=== PATIENT | male | born 1985 | race African-American/Black ===

== ENCOUNTER 2016-08-19 00:50 | Emergency (ER) | payer MEDICAID ==
[~2016-08-19] VITALS: Ht 170.2 cm; Wt 96.1 kg
[~2016-08-19 00:50] MED LIST: DILA8TAB4 PO; PROC1TAB8 PO
[2016-08-19 00:58] VITALS: BP 114/72; PULSE 77; RESP 12; TEMP 98.3; O2SAT 95
[2016-08-19] MEDS ORDERED: DILA8TAB4 PO (01:15)
--- NOTE | 2016-08-19 01:33 | PD ---
HPI Chief Complaint: Edema Time Seen by Provider: 01:09 Travel History International Travel<30 days: No Contact w/Intl Traveler<30days: No Traveled to known affect area: No History of Present Illness HPI 31-year-old male presents to the emergency department by private transportation for complaint of bilateral lower leg and pedal edema. Patient reportedly has noticed this for the first time since Friday. Patient states symptoms began around 5 PM on Friday noticing some swelling and persisted causing him pedal pain. No recent long distance travel protracted bedrest her surgical procedure. No chest pain shortness of breath or pleuritic chest pain. No fever or chills. No history of hypertension or dyslipidemia. Patient has chronic pain syndrome for which she has reportedly prescribed Dilaudid 8 mg 3 times a day. Patient has taken no anti-inflammatory medication such as ibuprofen/Motrin/Advil or Aleve/depression/Naprosyn. Patient's had no change in his urine output. Patient does complain of low back pain. Patient denies other concerns or complaints. Patient is not elevated his lower extremities. PFSH Past Medical History Narrative Medical Chronic low back pain; inguinal herniorrhaphy; positive tobacco use alcohol use and cannabis use; nursing notes reviewed Diminished Hearing: No Musculoskeletal: Yes (CHRONIC BACK PAIN) Immunizations Current: Yes ?: Not Past Surgical History Other Surgery: Yes (INGUINAL HERNIA REPAIR) Social History Alcohol Use: Yes (SOCIALLY) Tobacco Use: Yes (OCCASIONAL) Substance Use: Yes (THC) Allergies-Medications (Allergen,Severity, Reaction): Coded Allergies: No Known Allergies (Verified , 08/19/16) Reported Meds & Prescriptions Reported Meds & Active Scripts Active Reported Dilaudid (Hydromorphone HCl) 8 Mg Tab 8 Mg PO Q6H PRN Review of Systems Except as stated in HPI: all other systems reviewed are Neg General / Constitutional: No: Fever, Chills Eyes: No: Visual changes HENT: No: Congestion Cardiovascular: Positive: Edema, No: Chest Pain or Discomfort, Diaphoresis, Dyspnea on exertion Respiratory: No: Cough, Shortness of Breath, Wheezing Gastrointestinal: No: Nausea, Vomiting, Diarrhea, Abdominal Pain Genitourinary: No: Dysuria, Flank Pain Musculoskeletal: Positive: Edema, Pain, No: Myalgias, Arthralgias, Limited ROM Skin: No Rash Neurologic: No: Weakness, Dizziness, Syncope Psychiatric: No: Anxiety Endocrine: No: Heat Intolerance, Cold Intolerance Hematologic/Lymphatic: No: Easy Bruising Physical Exam Narrative GENERAL: Well-developed well-nourished male in no acute distress no respiratory distress SKIN: Warm and dry. HEAD: Normocephalic. EYES: No scleral icterus. No injection or drainage. NECK: Supple, trachea midline. No JVD or lymphadenopathy. CARDIOVASCULAR: Regular rate and rhythm without murmurs, gallops, or rubs. RESPIRATORY: Breath sounds equal bilaterally. No accessory muscle use. GASTROINTESTINAL: Abdomen soft, non-tender, nondistended. MUSCULOSKELETAL: No cyanosis, 1+ bilateral lower leg ankle and pedal edema; bilateral dorsalis pedis pulses and posterior tibialis pulses 2 and equal, bilateral capillary refill less than 2 seconds; bilateral lower leg tenderness to palpation negative Homans sign negative posterior calf cording to palpation. BACK: Nontender without obvious deformity. No CVA tenderness. Data Data Last Documented VS Vital Signs Date Time Temp Pulse Resp B/P Pulse Ox O2 Delivery O2 Flow Rate FiO2 08/19/16 04:23 78 14 112/71 99 Room Air 08/19/16 00:58 98.3 Orders Complete Blood Count With Diff (08/19/16 01:09) Basic Metabolic Panel (Bmp) (08/19/16 01:09) B-Type Natriuretic Peptide (08/19/16 01:09) Magnesium (Mg) (08/19/16 01:09) Troponin I (08/19/16 01:09) Urinalysis - C+S If Indicated (08/19/16 01:09) Iv Access Insert/Monitor (08/19/16 01:09) Electrocardiogram (08/19/16 01:09) Ecg Monitoring (08/19/16 01:09) Oximetry (08/19/16 01:09) Chest, Single Ap (08/19/16 01:09) D-Dimer (08/19/16 02:30) Sodium Chlorid 0.9% 500 Ml Inj (Ns 500 M (08/19/16 03:15) Us Leg Venous Doppler Bilat (08/19/16 ) Ct Pulmonary Angiogram (08/19/16 ) Iohexol 350 Inj (Omnipaque 350 Inj) (08/19/16 05:29) Labs Laboratory Tests Test 08/19/16 08/19/16 08/19/16 01:30 02:20 02:51 White Blood Count 6.2 TH/MM3 Red Blood Count 4.37 MIL/MM3 Hemoglobin 13.3 GM/DL Hematocrit 38.3 % Mean Corpuscular Volume 87.6 FL Mean Corpuscular Hemoglobin 30.3 PG Mean Corpuscular Hemoglobin 34.6 % Concent Red Cell Distribution Width 11.7 % Platelet Count 157 TH/MM3 Mean Platelet Volume 9.4 FL Neutrophils (%) (Auto) 58.0 % Lymphocytes (%) (Auto) 30.8 % Monocytes (%) (Auto) 8.0 % Eosinophils (%) (Auto) 1.5 % Basophils (%) (Auto) 1.7 % Neutrophils # (Auto) 3.6 TH/MM3 Lymphocytes # (Auto) 1.9 TH/MM3 Monocytes # (Auto) 0.5 TH/MM3 Eosinophils # (Auto) 0.1 TH/MM3 Basophils # (Auto) 0.1 TH/MM3 CBC Comment DIFF FINAL Differential Comment Sodium Level 143 MEQ/L Potassium Level 3.6 MEQ/L Chloride Level 106 MEQ/L Carbon Dioxide Level 30.2 MEQ/L Anion Gap 7 MEQ/L Blood Urea Nitrogen 11 MG/DL Creatinine 1.10 MG/DL Estimat Glomerular Filtration 93 ML/MIN Rate Random Glucose 126 MG/DL Calcium Level 8.7 MG/DL Magnesium Level 2.3 MG/DL Troponin I LESS THAN 0.02 NG/ML B-Type Natriuretic Peptide LESS THAN 2 PG/ML Urine Color YELLOW Urine Turbidity CLEAR Urine pH 6.0 Urine Specific [place] 1.022 Urine Protein NEG mg/dL Urine Glucose (UA) NEG mg/dL Urine Ketones NEG mg/dL Urine Occult Blood NEG Urine Nitrite NEG Urine Bilirubin NEG Urine Leukocyte Esterase NEG Urine RBC 0-3 /hpf Urine WBC 0-2 /hpf Urine Squamous Epithelial 0-5 /hpf Cells Urine Mucus OCC /lpf Microscopic Urinalysis Comment CULT NOT INDICATED D-Dimer Quantitative (PE/DVT) 1.40 MG/L FEU [facility] Medical Decision Making Medical Screen Exam Complete: Yes Emergency Medical Condition: Yes Medical Record Reviewed: Yes Interpretation(s) EKG: Normal sinus rhythm rate 72 first degree AV block no acute ST elevation or injury pattern change noted Last Impressions Chest X-Ray 08/19/16 0109 Signed Impressions: Service Date/Time: Friday, August 19, 2016 01:32 - CONCLUSION: Mild bibasilar atelectasis. Martin Landa MD Lower Extremity Ultrasound 08/19/16 0000 Signed Impressions: Service Date/Time: Friday, August 19, 2016 04:34 - CONCLUSION: No DVT of either lower extremity. Martin Landa MD CBC & BMP Diagram 08/19/16 01:30 UA: no protein Last Impressions CT pulmonary angiogram: CONCLUSION: No pulmonary embolus. Mild atelectasis/infiltrate both lung bases. Martin Landa MD on August 19, 2016 at 5:55 Board Certified Radiologist. This report was verified electronically. Differential Diagnosis Dehydration, renal insufficiency, CHF, lymphedema, DVT Narrative Course @ 3:45 d-dimer is elevated unknown family history for hypercoagulable states; imaging studies ordered Diagnosis Primary Impression: Pedal edema Referrals: Primary Care Physician call for appointment Patient Instructions: General Instructions Additional Instructions: Follow-up with your primary care provider Elevate lower extremities Return to the emergency department for any concerns or change in condition May use ibuprofen/Advil/Motrin every 6-8 hours as needed for pain associated with inflammation Brianna Kramer MD Aug 19, 2016 01:33
[2016-08-19 01:44] LABS: CHLORIDE 106 MEQ/L (98-107); POTASSIUM 3.6 MEQ/L (3.5-5.1); SODIUM (NA) 143 MEQ/L (136-145)
[2016-08-19 01:47] LABS: ANION GAP 7 MEQ/L (5-15); AUTOMATED NEUTROPHIL # 3.6 TH/MM3 (1.8-7.7); BASOPHIL # 0.1 TH/MM3 (0-0.2); BASOPHIL % 1.7 % (0.0-2.0); BICARBONATE 30.2 MEQ/L (21.0-32.0); BLOOD UREA NITROGEN 11 MG/DL (7-18); EOSINOPHIL # 0.1 TH/MM3 (0-0.4); EOSINOPHIL % 1.5 % (0.0-4.0); HEMATOCRIT 38.3 % (39.0-51.0); HEMO FLAGS DIFF FINAL; LYMPH % 30.8 % (9.0-44.0); LYMPHOCYTE # 1.9 TH/MM3 (1.0-4.8); MAGNESIUM 2.3 MG/DL (1.5-2.5); MEAN CELL VOLUME 87.6 FL (80.0-100.0); MEAN CORPUSCULAR HEMOGLOBIN 30.3 PG (27.0-34.0); MEAN CORPUSCULAR HGB CONC 34.6 % (32.0-36.0); PLATELET COUNT 157 TH/MM3 (150-450); RED BLOOD COUNT 4.37 MIL/MM3 (4.50-5.90); RED CELL DISTRIBUTION WIDTH 11.7 % (11.6-17.2); WHITE BLOOD COUNT 6.2 TH/MM3 (4.0-11.0)
--- NOTE | 2016-08-19 01:48 | RADHPO ---
EXAM DATE/TIME: 08/19/2016 01:32 [facility] COMPARISON: CHEST PA & LAT, April 09, 2014, 16:35. INDICATIONS : Short of breath. MEDICAL HISTORY : None. SURGICAL HISTORY : None. ENCOUNTER: Initial ACUITY: 1 day PAIN SCORE: 0/10 LOCATION: Bilateral chest FINDINGS: Mild bibasilar atelectasis present. No pleural effusion. No pneumothorax. Heart size stable, within n ormal limits. CONCLUSION: Mild bibasilar atelectasis. Martin Landa MD on August 19, 2016 at 1:44 Board Certified Radiologist. This report was verified electronically.
[2016-08-19 01:50] LABS: GLOMERULAR FILTRATION RATE 93 ML/MIN (>89)
[2016-08-19 02:15] VITALS: BP 117/70; PULSE 72; RESP 14; O2SAT 98
[2016-08-19 02:51] LABS: BLOOD, URINE NEG (NEG); GLUCOSE,URINE NEG (NEG); KETONE, URINE NEG (NEG); NITRITE,URINE NEG (NEG)
[2016-08-19 03:04] LABS: URINE COLOR YELLOW (YELLW/STRAW)
[2016-08-19 03:05] LABS: MUCUS URINE OCC /lpf (OCC); SQUAMOUS EPITHELIAL CELL URINE 0-5 /hpf (0-5); WBC, URINE 0-2 /hpf (0-5)
[2016-08-19 03:06] LABS: COMMENT (UR) CULT NOT INDICATED; CULTURE IF INDICATED CULT NOT INDICATED; RBC, URINE 0-3 /hpf (0-3)
[2016-08-19] MEDS ORDERED: SODIUM CHLORID 0.9% 500 ML INJ 500 ML IV ONE (03:15)
[2016-08-19 03:32] VITALS: BP 114/64; PULSE 78; RESP 14; O2SAT 97
[2016-08-19 04:23] VITALS: BP 112/71; PULSE 78; RESP 14; O2SAT 99
--- NOTE | 2016-08-19 05:13 | RADHPO ---
EXAM DATE/TIME: 08/19/2016 04:34 [facility] COMPARISON: No previous studies available for comparison. INDICATIONS : Bilateral leg pain. MEDICAL HISTORY : Bilateral leg pain and pedal edema. Chronic back pain. SURGICAL HISTORY : Hernia repair, inguinal. ENCOUNTER: Initial ACUITY: 1 day PAIN SCORE: 5/10 LOCATION: Bilateral legs. TECHNIQUE: Venous ultrasound of the left and right leg was performed from the inguinal ligament to the proximal calf. Real-time, color Doppler and spectral tracing, compression and augmentation techniques were us ed. FINDINGS: RIGHT LEG: There is normal compressibility of the deep venous system from the inguinal region to the proximal ca lf. No echogenic clot is seen in the lumen of the common femoral, femoral, popliteal, and posterior tibial veins. There is a normal response of the venous system to proximal and distal augmentation an d respiration. LEFT LEG: There is normal compressibility of the deep venous system from the inguinal region to the proximal ca lf. No echogenic clot is seen in the lumen of the common femoral, femoral, popliteal, and posterior tibial veins. There is a normal response of the venous system to proximal and distal augmentation an d respiration. CONCLUSION: No DVT of either lower extremity. Martin Landa MD on August 19, 2016 at 5:11 Board Certified Radiologist. This report was verified electronically.
[2016-08-19] MEDS ORDERED: IOHEXOL 350 MG/ML 10 ML VIAL (for RAD DIAG) IV ONE (05:29)
--- NOTE | 2016-08-19 05:57 | RADHPO ---
EXAM DATE/TIME: 08/19/2016 04:24 [facility] COMPARISON: No previous studies available for comparison. INDICATIONS : Evaluate for embolism. Lower extremity swelling. IV CONTRAST: 75 cc Omnipaque 350 (iohexol) IV RADIATION DOSE: 18.29 CTDIvol (mGy) MEDICAL HISTORY : None SURGICAL HISTORY : None. ENCOUNTER: Initial ACUITY: 1 day PAIN SCALE: 6/10 LOCATION: chest TECHNIQUE: Volumetric scanning of the chest was performed using a pulmonary embolism protocol MIP images were re constructed. Using automated exposure control and adjustment of the mA and/or kV according to patien t size, radiation dose was kept as low as reasonably achievable to obtain optimal diagnostic quality images. FINDINGS: PULMONARY ARTERIES: No filling defects are seen in the pulmonary arteries through the segmental level. LUNGS: Mild patchy consolidation seen in both lung bases. PLEURAE: There is no pleural thickening or pleural effusion. MEDIASTINUM: There is good visualization of the great vessels of the middle mediastinum. No evidence of mediastin al or hilar adenopathy/mass. MUSCULOSKELETAL: Within normal limits for patient age. MISCELLANEOUS: The visualized upper abdominal organs demonstrate no acute abnormality. CONCLUSION: No pulmonary embolus. Mild atelectasis/infiltrate both lung bases. Martin Landa MD on August 19, 2016 at 5:55 Board Certified Radiologist. This report was verified electronically.
[2016-08-19 06:13] VITALS: BP 115/70
--- NOTE | 2016-08-19 14:19 | EKG ---
Date Performed: 08/19/2016 Time Performed: 01:16:32 PTAGE: 31 years EKG: Sinus rhythm WITH FIRST DEGREE AV BLOCK ABNORMAL ECG NO PREVIOUS TRACING DOCTOR: Johan Melvin Interpretating Date/Time 08/19/2016 14:15:34
== END 2016-08-19 06:17 | disposition home or self-care (01) ==
LOC: PHED 00:50
DX: R60.0 Localized edema (principal); I44.0 Atrioventricular block, first degree; Z72.0 Tobacco use; M54.5 Low back pain; R94.31 Abnormal electrocardiogram [ECG] [EKG]; J98.11 Atelectasis
CPT/HCPCS: 71010; 71275; 80048; 81001; 83735; 83880; 84484; 85025; 85379; 93005; 93970; 99285; Q9967

== ENCOUNTER 2016-10-29 18:37 | Emergency (ER) | payer MEDICAID ==
[~2016-10-29] VITALS: Ht 170.2 cm; Wt 90.0 kg
[~2016-10-29 18:37] MED LIST changes: -PROC1TAB8 PO
[2016-10-29 18:47] VITALS: BP 131/78; PULSE 60; RESP 18; TEMP 98.1; O2SAT 98
[2016-10-29] MEDS ORDERED: SODIUM CHLOR 0.9% 1000 ML INJ 1,000 ML IV ONE (19:15)
[2016-10-29] MEDS ORDERED: ONDANSETRON HCL 4 MG/2 ML VIAL IV PUSH ONE (19:15)
[2016-10-29 19:36] LABS: AUTOMATED NEUTROPHIL # 3.2 TH/MM3 (1.8-7.7); BASOPHIL # 0.1 TH/MM3 (0-0.2); BASOPHIL % 1.2 % (0.0-2.0); EOSINOPHIL # 0.1 TH/MM3 (0-0.4); EOSINOPHIL % 1.4 % (0.0-4.0); HEMATOCRIT 42.7 % (39.0-51.0); HEMO FLAGS DIFF FINAL; LYMPH % 42.4 % (9.0-44.0); MEAN CELL VOLUME 87.5 FL (80.0-100.0); MEAN CORPUSCULAR HEMOGLOBIN 29.3 PG (27.0-34.0); MEAN CORPUSCULAR HGB CONC 33.5 % (32.0-36.0); MONO % 9.7 % (0.0-8.0); NEUT % 45.3 % (16.0-70.0); PLATELET COUNT 211 TH/MM3 (150-450); RED BLOOD COUNT 4.88 MIL/MM3 (4.50-5.90); RED CELL DISTRIBUTION WIDTH 11.6 % (11.6-17.2); WHITE BLOOD COUNT 7.1 TH/MM3 (4.0-11.0)
[2016-10-29 19:48] LABS: CHLORIDE 104 MEQ/L (98-107); POTASSIUM 3.7 MEQ/L (3.5-5.1); SODIUM (NA) 136 MEQ/L (136-145)
[2016-10-29 19:52] LABS: ANION GAP 6 MEQ/L (5-15); BICARBONATE 25.6 MEQ/L (21.0-32.0); BLOOD UREA NITROGEN 8 MG/DL (7-18)
[2016-10-29 19:55] LABS: ALT (GPT) 28 U/L (12-78); AST (GOT) 19 U/L (15-37); GLOMERULAR FILTRATION RATE 93 ML/MIN (>89)
[2016-10-29 19:56] LABS: TOTAL BILIRUBIN ADULT 0.7 MG/DL (0.2-1.0)
[2016-10-29 19:57] VITALS: BP 131/77; PULSE 76; RESP 18; O2SAT 99
[2016-10-29 19:57] LABS: ALKALINE PHOSPHATASE 72 U/L (45-117)
[2016-10-29] MEDS ORDERED: MORPHINE SULFATE 4 MG/ML INJ IV PUSH ONE (20:00)
--- NOTE | 2016-10-29 20:57 | PD ---
HPI Chief Complaint: GI Complaint Time Seen by Provider: 18:55 Travel History International Travel<30 days: No Contact w/Intl Traveler<30days: No Traveled to known affect area: No History of Present Illness HPI Patient is a 30-year-old male comes in complaining of nausea and vomiting. He says it started this afternoon after he ate some chicken. He has had this in the past. He denies any abdominal pain. He denies any diarrhea. He denies any fever or chills. He does smoke one often. He also takes 8 mg of Dilaudid for chronic back pain and has been out of it since Friday. PFSH Past Medical History Diminished Hearing: No Musculoskeletal: Yes (CHRONIC BACK PAIN) Immunizations Current: Yes Migraines: Yes ?: Not Past Surgical History Other Surgery: Yes (INGUINAL HERNIA REPAIR) Social History Alcohol Use: Yes (SOCIALLY) Tobacco Use: Yes (OCCASIONAL) Substance Use: Yes (THC) Allergies-Medications (Allergen,Severity, Reaction): Coded Allergies: metoclopramide (Verified Allergy, Intermediate, Rash, 10/29/16) Reported Meds & Prescriptions Reported Meds & Active Scripts Active Reported Dilaudid (Hydromorphone HCl) 8 Mg Tab 8 Mg PO Q6H PRN Review of Systems Except as stated in HPI: all other systems reviewed are Neg General / Constitutional: No: Fever, Chills HENT: Positive: Headaches Cardiovascular: No: Chest Pain or Discomfort Respiratory: No: Shortness of Breath Gastrointestinal: Positive: Nausea, Vomiting, No: Diarrhea, Abdominal Pain Genitourinary: No: Dysuria Musculoskeletal: No: Edema, Pain Skin: No Rash, No Change in Pigmentation Neurologic: No: Weakness, Dizziness Physical Exam Narrative GENERAL: Awake and alert, in no acute distress. SKIN: Focused skin assessment warm/dry. HEAD: Atraumatic. Normocephalic. EYES: Pupils equal and round. No scleral icterus. NECK: Trachea midline. No JVD. CARDIOVASCULAR: Regular rate and rhythm. No murmur appreciated. RESPIRATORY: Clear to auscultation. Breath sounds equal bilaterally. GASTROINTESTINAL: Abdomen soft, non-tender, nondistended. MUSCULOSKELETAL: No obvious deformities. No clubbing. No cyanosis. No edema. NEUROLOGICAL: Awake and alert. No obvious cranial nerve deficits. Motor grossly within normal limits. Normal speech. PSYCHIATRIC: Appropriate mood and affect; insight and judgment normal. Data Data Last Documented VS Vital Signs Date Time Temp Pulse Resp B/P (MAP) Pulse Ox O2 Delivery O2 Flow Rate FiO2 10/29/16 19:57 76 18 131/77 (95) 99 Room Air 10/29/16 18:47 98.1 Orders Orders Iv Access Insert/Monitor (10/29/16 19:04) Complete Blood Count With Diff (10/29/16 19:04) Comprehensive Metabolic Panel (10/29/16 19:04) Sodium Chlor 0.9% 1000 Ml Inj (Ns 1000 M (10/29/16 19:15) Ondansetron Inj (Zofran Inj) (10/29/16 19:15) Morphine Inj (Morphine Inj) (10/29/16 20:00) Labs Laboratory Tests Test 10/29/16 19:25 White Blood Count 7.1 TH/MM3 Red Blood Count 4.88 MIL/MM3 Hemoglobin 14.3 GM/DL Hematocrit 42.7 % Mean Corpuscular Volume 87.5 FL Mean Corpuscular Hemoglobin 29.3 PG Mean Corpuscular Hemoglobin Concent 33.5 % Red Cell Distribution Width 11.6 % Platelet Count 211 TH/MM3 Mean Platelet Volume 8.5 FL Neutrophils (%) (Auto) 45.3 % Lymphocytes (%) (Auto) 42.4 % Monocytes (%) (Auto) 9.7 % Eosinophils (%) (Auto) 1.4 % Basophils (%) (Auto) 1.2 % Neutrophils # (Auto) 3.2 TH/MM3 Lymphocytes # (Auto) 3.0 TH/MM3 Monocytes # (Auto) 0.7 TH/MM3 Eosinophils # (Auto) 0.1 TH/MM3 Basophils # (Auto) 0.1 TH/MM3 CBC Comment DIFF FINAL Differential Comment Blood Urea Nitrogen 8 MG/DL Creatinine 1.10 MG/DL Random Glucose 110 MG/DL Total Protein 8.0 GM/DL Albumin 4.4 GM/DL Calcium Level 8.9 MG/DL Alkaline Phosphatase 72 U/L Aspartate Amino Transf (AST/SGOT) 19 U/L Alanine Aminotransferase (ALT/SGPT) 28 U/L Total Bilirubin 0.7 MG/DL Sodium Level 136 MEQ/L Potassium Level 3.7 MEQ/L Chloride Level 104 MEQ/L Carbon Dioxide Level 25.6 MEQ/L Anion Gap 6 MEQ/L Estimat Glomerular Filtration Rate 93 ML/MIN [facility] Medical Decision Making Medical Screen Exam Complete: Yes Emergency Medical Condition: Yes Medical Record Reviewed: Yes Differential Diagnosis Gastroenteritis versus electrolyte abnormality versus intoxication versus withdrawal Narrative Course Patient is a 31-year-old male who comes in complaining of nausea and vomiting. Exam shows no acute abnormalities. IV established, labs sent. Labs show no acute abnormalities. Patient given IV fluids, Zofran, morphine. He reports resolution of his symptoms. He was able to drink water without vomiting. He will be discharged home. Advised to drink plenty of fluids. Advised to avoid fatty foods and eat a bland diet. Advised to stop smoking marijuana. Advised to return to the ED as needed for any worsening symptoms. Advised follow-up with a primary care doctor. Diagnosis Primary Impression: Nausea and vomiting Qualified Codes: R11.2 - Nausea with vomiting, unspecified Patient Instructions: Acute Nausea and Vomiting (ED), General Instructions Additional Instructions: Drink plenty of fluids. Avoid fatty foods and eat a bland diet. Follow-up with a primary care doctor. Return to the ED as needed for any worsening symptoms. Disposition: 01 DISCHARGE HOME Condition: Stable Yoli Anaya MD Oct 29, 2016 20:57
[2016-10-29 21:29] VITALS: BP 149/77; PULSE 57; RESP 18; TEMP 98.4; O2SAT 98
== END 2016-10-29 21:34 | disposition home or self-care (01) ==
LOC: PHED 18:37
DX: R11.2 Nausea with vomiting, unspecified (principal)
CPT/HCPCS: 80053; 85025; 96361; 96374; 96375; 99284; J2270; J2405; J7030

== ENCOUNTER 2017-06-17 05:32 | Emergency (ER) | payer MEDICAID ==
[~2017-06-17] VITALS: Ht 170.2 cm; Wt 81.0 kg
[2017-06-17 05:35] VITALS: BP 106/71; PULSE 72; RESP 14; TEMP 97.3; O2SAT 98
[2017-06-17 05:59] VITALS: RESP 15; O2SAT 100
--- NOTE | 2017-06-17 06:00 | PD ---
HPI Chief Complaint: GI Complaint Time Seen by Provider: 05:43 Travel History International Travel<30 days: No Contact w/Intl Traveler<30days: No Traveled to known affect area: No History of Present Illness HPI The patient is 32 year old male who presents to the [facility] emergency department with a history of nausea, vomiting, and diarrhea that he reports began at approximately midnight. He reports that he has not been able to keep anything down since onset. He reports that he has had vomiting 3, diarrhea 2. He denies having any blood in his stool or black or tarry stools. He denies having any mucus in his stool. He denies any sick contacts, recent antibiotic use, or unusual food intake. The patient does have a history of chronic back pain managed by a pain management physician. He is on Dilaudid for pain. He reports that he has been running low on the prescription and taking them less frequently. He last took a Dilaudid on Friday. He denies having any focal abdominal pain associated with this. On review of systems otherwise, he denies having any known recent fevers, cough or congestion,neck pain, chest pain, shortness of breath, urinary symptoms, or neurologic symptoms. [facility] Past Medical History Narrative Medical The patient's past medical history is significant for chronic back pain, migraine headaches Diminished Hearing: No Musculoskeletal: Yes (CHRONIC BACK PAIN) Immunizations Current: Yes Migraines: Yes Past Surgical History Narrative Surgical The patient's past surgical history is significant for an inguinal hernia repair. Other Surgery: Yes (INGUINAL HERNIA REPAIR) Social History Alcohol Use: Yes (SOCIALLY) Tobacco Use: Yes (OCCASIONAL) Substance Use: Yes (THC) Allergies-Medications (Allergen,Severity, Reaction): Coded Allergies: metoclopramide (Verified Allergy, Intermediate, Rash, 06/17/17) Reported Meds & Prescriptions Reported Meds & Active Scripts Active Reported Dilaudid (Hydromorphone HCl) 8 Mg Tab 8 Mg PO Q6H PRN Review of Systems Except as stated in HPI: all other systems reviewed are Neg General / Constitutional: No: Fever Eyes: No: Visual changes HENT: No: Headaches Cardiovascular: No: Chest Pain or Discomfort Respiratory: No: Shortness of Breath Gastrointestinal: Positive: Nausea, Vomiting, Diarrhea, Changes in Bowel Habits , No: Abdominal Pain, Hematemesis, Hematochezia Genitourinary: No: Dysuria Musculoskeletal: No: Pain Skin: No Rash Neurologic: No: Weakness Psychiatric: No: Depression Endocrine: No: Polydipsia Hematologic/Lymphatic: No: Easy Bruising Physical Exam Narrative General: The patient is a well-developed well-nourished male in no acute distress. The patient is sitting with his eyes closed. The patient is drowsy on examination and has difficulty answering questions due to being drowsy. Head and Neck exam: Head is normocephalic atraumatic. Eyes: EOMI, pupils are equal round and reactive to light with 2 mm pupils bilaterally Nose: Midline septum with pink mucous membranes Mouth: Dentition unremarkable. Moist mucus membranes. Posterior oropharynx is not erythematous. No tonsillar hypertrophy. Uvula midline. Airway patent. Neck: No palpable lymphadenopathy. No nuchal rigidity. No thyromegaly. Cardiovascular: Regular rate and rhythm without murmurs, gallops, or rubs. No pulse deficit to the extremities on simultaneous auscultation and palpation of his radial artery. Lungs: Clear to auscultation bilaterally. No wheezes, rhonchi, or rales. Abdomen: Soft, without tenderness to palpation in all 4 quadrants of the abdomen. No guarding, rebound, or rigidity. Normal bowel sounds are audible. No tenderness on palpation of McBurney's point. Negative Levin sign. Extremities: No clubbing, cyanosis, or edema. 2+ pulses in all 4 extremities. Back: No costovertebral angle tenderness to palpation. Neurologic Exam: Grossly nonfocal. Drowsy on examination. Skin Exam: No rash noted. Intact skin that is warm and dry. Data Data Last Documented VS Vital Signs Date Time Temp Pulse Resp B/P (MAP) Pulse Ox O2 Delivery O2 Flow Rate FiO2 06/17/17 05:59 15 100 Room Air 06/17/17 05:35 97.3 72 106/71 (83) Orders Orders Complete Blood Count With Diff (06/17/17 05:55) Comprehensive Metabolic Panel (06/17/17 05:55) C-Reactive Protein (Crp) (06/17/17 05:55) Lipase (06/17/17 05:55) Urinalysis - C+S If Indicated (06/17/17 05:55) Magnesium (Mg) (06/17/17 05:55) Chest, Single Ap (06/17/17 05:55) Iv Access Insert/Monitor (06/17/17 05:55) Ecg Monitoring (06/17/17 05:55) Oximetry (06/17/17 05:55) Drug Screen, Random Urine (06/17/17 05:55) Alcohol (Ethanol) (06/17/17 05:55) Labs Laboratory Tests Test 06/17/17 05:25 06/17/17 05:55 Urine Color YELLOW Urine Turbidity CLEAR Urine pH 7.5 Urine Specific [place] 1.024 Urine Protein 30 mg/dL Urine Glucose (UA) NEG mg/dL Urine Ketones TRACE mg/dL Urine Occult Blood NEG Urine Nitrite NEG Urine Bilirubin NEG Urine Urobilinogen 4.0 MG/DL Urine Leukocyte Esterase TRACE Urine RBC LESS THAN 1 /hpf Urine WBC 3 /hpf Urine Squamous Epithelial Cells 1 /hpf Urine Mucus MANY /lpf Microscopic Urinalysis Comment CULT NOT INDICATED Urine Opiates Screen POS Urine Barbiturates Screen NEG Urine Amphetamines Screen NEG Urine Benzodiazepines Screen NEG Urine Cocaine Screen NEG Urine Cannabinoids Screen POS White Blood Count 7.4 TH/MM3 Red Blood Count 4.94 MIL/MM3 Hemoglobin 15.3 GM/DL Hematocrit 44.8 % Mean Corpuscular Volume 90.5 FL Mean Corpuscular Hemoglobin 31.0 PG Mean Corpuscular Hemoglobin Concent 34.2 % Red Cell Distribution Width 12.3 % Platelet Count 193 TH/MM3 Mean Platelet Volume 8.7 FL Neutrophils (%) (Auto) 80.9 % Lymphocytes (%) (Auto) 13.8 % Monocytes (%) (Auto) 4.7 % Eosinophils (%) (Auto) 0.4 % Basophils (%) (Auto) 0.2 % Neutrophils # (Auto) 6.0 TH/MM3 Lymphocytes # (Auto) 1.0 TH/MM3 Monocytes # (Auto) 0.3 TH/MM3 Eosinophils # (Auto) 0.0 TH/MM3 Basophils # (Auto) 0.0 TH/MM3 CBC Comment AUTO DIFF Differential Comment AUTO DIFF CONFIRMED Blood Urea Nitrogen 9 MG/DL Creatinine 1.34 MG/DL Random Glucose 125 MG/DL Total Protein 8.6 GM/DL Albumin 4.7 GM/DL Calcium Level 9.8 MG/DL Magnesium Level 2.2 MG/DL Alkaline Phosphatase 72 U/L Aspartate Amino Transf (AST/SGOT) 23 U/L Alanine Aminotransferase (ALT/SGPT) 27 U/L Total Bilirubin 0.9 MG/DL Sodium Level 141 MEQ/L Potassium Level 3.6 MEQ/L Chloride Level 106 MEQ/L Carbon Dioxide Level 28.4 MEQ/L Anion Gap 7 MEQ/L Estimat Glomerular Filtration Rate 74 ML/MIN C-Reactive Protein LESS THAN 0.29 MG/DL Lipase 114 U/L Ethyl Alcohol Level 3 MG/DL MDM Medical Decision Making Medical Screen Exam Complete: Yes Emergency Medical Condition: Yes Medical Record Reviewed: Yes Interpretation(s) Last Impressions Chest X-Ray 06/17/17 0555 Signed Impressions: Service Date/Time: Saturday, June 17, 2017 05:58 - CONCLUSION: No evidence of acute cardiopulmonary disease. Martin Landa MD Differential Diagnosis Cyclic vomiting syndrome, versus gastroparesis, versus withdrawal syndrome, versus gastroenteritis, versus other viral syndrome Narrative Course During the course of the patient's emergency department visit, the patient's history, examination, and differential diagnosis were reviewed with the patient. The patient was placed on a personnel monitor with oximetry and frequent blood pressure monitoring. The patient had IV access obtained and blood work sent for analysis. The patient was initially provided normal saline 1 L IV fluid bolus, Zofran 4 mg IV. The patient's laboratory studies were reviewed and remarkable for white count of 7.4, hemoglobin 15.3, platelets 193 with neutrophils 80.9. CMP is remarkable for creatinine 1.34, glucose 125, total protein 8.6, C-reactive protein is less than 0.29. Urine drug screen is positive for opiates and cannabinoids. Alcohol level is 3. Urinalysis shows 30 protein trace ketones for urobilinogen, trace leukocyte esterase many mucus, culture not indicated. Radiology studies were reviewed and remarkable for chest x-ray that showed no evidence of acute cardiopulmonary disease, no free air. The patient has had no further episodes of vomiting in the emergency department. The patient is instructed to push fluids and get plenty of rest. The patient is given a prescription for Zofran at discharge. The patient is instructed to stay hydrated with an electrolyte rich solution such as Pedialyte or Gatorade. The patient is instructed to follow-up with his primary care physician regarding this emergency department visit. If the symptoms continue the patient should follow-up in 3 days for additional evaluation with his primary care physician. The patient is also instructed the cannabis use can be associated with vomiting, therefore I would recommend that he discontinue its use. The patient is resting comfortably and feels better, is alert and in no distress. The patient's results and examination findings were discussed with the patient. The repeat examination is unremarkable and benign. The history, exam, diagnostic testing, and current condition do not suggest any significant pathology to warrant further testing, continued ED treatment, admission, or surgical evaluation at this point. The vital signs have been stable. The patient does not have uncontrollable pain, intractable vomiting, or other significant symptoms. The patient's condition is stable and appropriate for discharge. The patient will pursue further outpatient evaluation with a primary care physician or other designated or consulting physician as indicated in the discharge instructions. The patient expressed understanding and was agreeable with this plan. Diagnosis Primary Impression: Nausea, vomiting, and diarrhea Referrals: Primary Care Physician 3 days Patient Instructions: Acute Diarrhea (ED), Acute Nausea and Vomiting (ED), General Instructions Additional Instructions: The patient is instructed to push fluids and get plenty of rest. The patient is given a prescription for Zofran at discharge. The patient is instructed to stay hydrated with an electrolyte rich solution such as Pedialyte or Gatorade. The patient is instructed to follow-up with his primary care physician regarding this emergency department visit. If the symptoms continue the patient should follow-up in 3 days for additional evaluation with his primary care physician. The patient is also instructed the cannabis use can be associated with vomiting, therefore I would recommend that he discontinue its use. Med/Other Pt SpecificInfo: Prescription(s) given Scripts Ondansetron Odt (Zofran Odt) 4 Mg Tab 4 MG SL Q6HR Y for Nausea/Vomiting, #7 TAB 0 Refills Prov: Evelin Leblanc MD 06/17/17 Disposition: 01 DISCHARGE HOME Condition: Stable Evelin Leblanc MD Jun 17, 2017 06:00
[2017-06-17 06:07] LABS: BASOPHIL % 0.2 % (0.0-2.0); EOSINOPHIL % 0.4 % (0.0-4.0); HEMATOCRIT 44.8 % (39.0-51.0); HEMOGLOBIN 15.3 GM/DL (13.0-17.0); LYMPH % 13.8 % (9.0-44.0); MEAN CELL VOLUME 90.5 FL (80.0-100.0); MEAN CORPUSCULAR HGB CONC 34.2 % (32.0-36.0); MEAN PLATELET VOLUME 8.7 FL (7.0-11.0); MONO % 4.7 % (0.0-8.0); MONOCYTE # 0.3 TH/MM3 (0-0.9); NEUT % 80.9 % (16.0-70.0); PLATELET COUNT 193 TH/MM3 (150-450); RED BLOOD COUNT 4.94 MIL/MM3 (4.50-5.90); RED CELL DISTRIBUTION WIDTH 12.3 % (11.6-17.2); WHITE BLOOD COUNT 7.4 TH/MM3 (4.0-11.0)
--- NOTE | 2017-06-17 06:16 | RADRPT ---
EXAM DATE/TIME: 06/17/2017 05:58 [facility] COMPARISON: CHEST SINGLE AP, August 19, 2016, 1:32. INDICATIONS : Short of breath. MEDICAL HISTORY : None. SURGICAL HISTORY : None. ENCOUNTER: Initial ACUITY: 1 day PAIN SCORE: 0/10 LOCATION: Bilateral chest FINDINGS: A single view of the chest demonstrates the lungs to be symmetrically aerated without evidence of mas s, infiltrate or effusion. The cardiomediastinal contours are unremarkable. Osseous structures are intact. CONCLUSION: No evidence of acute cardiopulmonary disease. Martin Landa MD on June 17, 2017 at 6:15 Board Certified Radiologist. This report was verified electronically.
[2017-06-17 06:23] LABS: ALT (GPT) 27 U/L (12-78)
[2017-06-17 06:26] LABS: ALKALINE PHOSPHATASE 72 U/L (45-117); TOTAL BILIRUBIN ADULT 0.9 MG/DL (0.2-1.0); TOTAL PROTEIN 8.6 GM/DL (6.4-8.2)
[2017-06-17 06:31] LABS: ALBUMIN 4.7 GM/DL (3.4-5.0); AST (GOT) 23 U/L (15-37); BICARBONATE 28.4 MEQ/L (21.0-32.0); BLOOD UREA NITROGEN 9 MG/DL (7-18); C-REACTIVE PROTEIN LESS THAN 0.29 MG/DL (0.00-0.30); CALCIUM 9.8 MG/DL (8.5-10.1); CHLORIDE 106 MEQ/L (98-107); CREATININE 1.34 MG/DL (0.60-1.30); GLOMERULAR FILTRATION RATE 74 ML/MIN (>89); GLUCOSE,RANDOM 125 MG/DL (74-106); MAGNESIUM 2.2 MG/DL (1.5-2.5); SODIUM (NA) 141 MEQ/L (136-145)
[2017-06-17 06:53] LABS: BILIRUBIN, URINE NEG (NEG); BLOOD, URINE NEG (NEG); GLUCOSE,URINE NEG (NEG); KETONE, URINE TRACE mg/dL (NEG); MUCUS URINE MANY /lpf (OCC); NITRITE,URINE NEG (NEG); PH, URINE 7.5 (5.0-8.5); SQUAMOUS EPITHELIAL CELL URINE 1 /hpf (0-5); URINE COLOR YELLOW (YELLW/STRAW); URINE LEUKOCYTE ESTERASE TRACE (NEG)
[2017-06-17] MEDS ORDERED: ZOFR4TAB3 SL (07:15)
== END 2017-06-17 07:49 | disposition home or self-care (01) ==
LOC: NEPC 05:32
DX: R11.2 Nausea with vomiting, unspecified (principal); R19.7 Diarrhea, unspecified; G89.29 Other chronic pain; M54.9 Dorsalgia, unspecified
CPT/HCPCS: 71045; 80053; 80307; 81001; 83690; 83735; 85025; 86140; 99284